=== PATIENT | male | born 1980 | race Two or more races ===

== ENCOUNTER 2024-02-07 23:24 | Emergency (ER) | payer OTHER ==
[~2024-02-07] VITALS: Ht 175.3 cm; Wt 136.1 kg
[2024-02-08] MEDS ORDERED: HYZAAR 100-12.1 EACH (00:30)
[2024-02-08] MEDS ORDERED: JARDIANCE10 MG (00:30)
== END 2024-02-08 | disposition left against medical advice (07) ==
LOC: ER 23:26
DX: Z53.21 Procedure and treatment not carried out due to patient leaving prior to being seen by health care provider (principal)